=== PATIENT | female | born 1970 | race Two or more races ===

== ENCOUNTER 2019-01-08 16:23 | Emergency (ER) | payer MEDICAID ==
[~2019-01-08] VITALS: Ht 167.6 cm; Wt 90.0 kg
[2019-01-08 19:21] LABS: *AMPHETAMINES SCREEN URINE NEGATIVE (NEGATIVE); *BARBITURATES SCREEN URINE NEGATIVE (NEGATIVE); *BENZODIAZEPINES SCREEN URINE NEGATIVE (NEGATIVE)
[2019-01-08 19:22] LABS: *COCAINE SCREEN URINE NEGATIVE (NEGATIVE); CANNABINOID URINE SCREEN NEGATIVE (NEGATIVE); METHADONE URINE SCREEN NEGATIVE (NEGATIVE); OPIATES URINE SCREEN NEGATIVE (NEGATIVE); PHENCYCLIDINE URINE SCREEN NEGATIVE (NEGATIVE)
[2019-01-08 19:30] VITALS: BP 128/60
== END 2019-01-08 20:00 | disposition home or self-care (01) ==
LOC: ER 16:23
DX: R60.0 Localized edema (principal); F41.1 Generalized anxiety disorder; F43.0 Acute stress reaction; F15.10 Other stimulant abuse, uncomplicated; R45.851 Suicidal ideations; R03.0 Elevated blood-pressure reading, without diagnosis of hypertension; F41.8 Other specified anxiety disorders
CPT/HCPCS: 80305; 81025; 93970; 99284